=== PATIENT | male | born 1985 | race American Indian/Alaskan Native ===

== ENCOUNTER 2020-02-15 06:38 | Observation (INO) | payer OTHER ==
[2020-02-15 07:39] LABS: Hematocrit TNR % (35.5-45.6); Hemoglobin TNR gm/dl (11.8-15.2); Lymphocytes % (Auto) TNR % (13.4-35.0); Mean Corpuscular HGB Conc TNR % (32-34); Mean Corpuscular Volume TNR fl (84-94); Mean Platelet Volume TNR fl (6-12); Platelet Count TNR K/mm3 (140-440); Red Blood Count TNR M/mm3 (3.65-5.03); Red Cell Distribution Width TNR % (13.2-15.2)
[2020-02-15 07:40] LABS: Basophils # (Auto) TNR K/mm3 (0.0-0.1); Basophils % (Auto) TNR % (0.0-1.8); Eosinophils # (Auto) TNR K/mm3 (0.0-0.4); Eosinophils % (Auto) TNR % (0.0-4.3); Lymphocytes # (Auto) TNR K/mm3 (1.2-5.4); Monocytes # (Auto) TNR K/mm3 (0.0-0.8); Monocytes % (Auto) TNR % (0.0-7.3)
[2020-02-15 07:54] LABS: Albumin 5.8 g/dL (3.9-5); Calcium 11.3 mg/dL (8.4-10.2)
[2020-02-15] MEDS ORDERED: SODIUM CHLORIDE 0.9% 1000 ML 1,000 ML IV ONE ×3 (08:07→10:58)
[2020-02-15] MEDS ORDERED: ONDANSETRON 4 MG/2 ML INJ IV ONE (08:07)
[2020-02-15] MEDS ORDERED: MORPHINE 4 MG/1 ML INJ IV ONE (08:10)
--- NOTE | 2020-02-15 08:10 | Emergency Department Report ---
ED General Adult HPI - General Chief complaint: Nausea/Vomiting/Diarrhea Stated complaint: N/V Time Seen by Provider: 02/15/20 08:01 Source: patient, EMS Mode of arrival: Stretcher Limitations: No Limitations - History of Present Illness Initial comments: Patient presents to the emergency department with a chief complaint of nausea and vomiting that started yesterday. Patient also complains of severe muscle spasm started after the nausea and vomiting. Patient denies any abdominal pain, shortness breath, or chest pain. -: Sudden Severity scale (0 -10): 3 Quality: other (cramping) Consistency: constant Improves with: none Worsens with: none Associated Symptoms: denies other symptoms Treatments Prior to Arrival: none - Related Data Allergies Allergy/AdvReac Type Severity Reaction Status Date / Time No Known Allergies Allergy Verified 02/15/20 06:46 ED Review of Systems ROS: Stated complaint: N/V Other details as noted in HPI Constitutional: denies: chills, fever Eyes: denies: eye pain, eye discharge, vision change ENT: denies: ear pain, throat pain Respiratory: denies: cough, shortness of breath, wheezing Cardiovascular: denies: chest pain, palpitations Endocrine: no symptoms reported Gastrointestinal: nausea, vomiting. denies: abdominal pain, diarrhea Genitourinary: denies: urgency, dysuria Musculoskeletal: denies: back pain, joint swelling, arthralgia Skin: denies: rash, lesions Neurological: denies: headache, weakness, paresthesias Psychiatric: denies: anxiety, depression Hematological/Lymphatic: denies: easy bleeding, easy bruising ED Past Medical Hx - Past Medical History Previous Medical History?: No - Surgical History Past Surgical History?: Yes Additional Surgical History: right hip - Social History Smoking Status: Current Every Day Smoker Substance Use Type: Alcohol ED Physical Exam - General Limitations: No Limitations General appearance: alert, in no apparent distress - Head Head exam: Present: atraumatic, normocephalic - Eye Eye exam: Present: normal appearance, PERRL, EOMI - ENT ENT exam: Present: mucous membranes dry - Neck Neck exam: Present: normal inspection - Respiratory Respiratory exam: Present: normal lung sounds bilaterally. Absent: respiratory distress - Cardiovascular Cardiovascular Exam: Present: regular rate, normal rhythm, tachycardia. Absent: systolic murmur, diastolic murmur, rubs, gallop - GI/Abdominal GI/Abdominal exam: Present: soft, normal bowel sounds. Absent: distended, tenderness - Rectal Rectal exam: Present: deferred - Extremities Exam Extremities exam: Present: normal inspection - Back Exam Back exam: Present: normal inspection - Neurological Exam Neurological exam: Present: alert, oriented X3, CN II-XII intact. Absent: motor sensory deficit - Psychiatric Psychiatric exam: Present: normal affect, normal mood - Skin Skin exam: Present: warm, dry, intact, normal color. Absent: rash ED Course Vital Signs 02/15/20 02/15/20 02/15/20 06:46 06:53 07:00 Temperature 97.7 F Pulse Rate 93 H 95 H 99 H Respiratory 11 L 20 17 Rate Blood Pressure 143/90 Blood Pressure 134/90 [Left] O2 Sat by Pulse 96 97 Oximetry 02/15/20 02/15/20 02/15/20 07:30 08:00 08:30 Temperature Pulse Rate 112 H 95 H 87 Respiratory 16 11 L 11 L Rate Blood Pressure 136/92 138/105 144/97 Blood Pressure [Left] O2 Sat by Pulse 94 97 100 Oximetry 02/15/20 02/15/20 02/15/20 09:00 09:30 10:00 Temperature Pulse Rate 85 88 87 Respiratory 17 18 17 Rate Blood Pressure 130/86 123/86 131/85 Blood Pressure [Left] O2 Sat by Pulse 93 95 Oximetry 02/15/20 02/15/20 02/15/20 10:30 11:00 11:31 Temperature Pulse Rate 83 72 81 Respiratory 12 7 L 10 L Rate Blood Pressure 122/81 127/84 Blood Pressure [Left] O2 Sat by Pulse 96 96 97 Oximetry ED Medical Decision Making - Lab Data Result diagrams: 02/15/20 12:08 02/15/20 12:08 Lab Results 02/15/20 02/15/20 02/15/20 Range/Units 06:54 06:54 06:54 WBC TNR RBC TNR Hgb TNR Hct TNR MCV TNR MCH TNR MCHC TNR RDW TNR Plt Count TNR Lymph % (Auto) TNR Leslie % (Auto) TNR Eos % (Auto) TNR Baso % (Auto) TNR Lymph # (Auto) TNR Leslie # (Auto) TNR Eos # (Auto) TNR Baso # (Auto) TNR Seg Neutrophils % TNR Seg Neutrophils # TNR Sodium 139 (137-145) mmol/L Potassium 3.2 L (3.6-5.0) mmol/L Chloride 90.1 L (98-107) mmol/L Carbon Dioxide 17 L (22-30) mmol/L Anion Gap 35 mmol/L BUN 44 H (9-20) mg/dL Creatinine 5.6 H (0.8-1.3) mg/dL Estimated GFR 12 ml/min BUN/Creatinine Ratio 8 % Glucose 159 H (75-100) mg/dL Calcium 11.3 H (8.4-10.2) mg/dL Total Bilirubin 1.10 (0.1-1.2) mg/dL AST 33 (5-40) units/L ALT 22 (7-56) units/L Alkaline Phosphatase 102 (35-129) units/L Total Protein 10.1 H (6.3-8.2) g/dL Albumin 5.8 H (3.9-5) g/dL Albumin/Globulin Ratio 1.3 % Lipase 40 (13-60) units/L - Medical Decision Making After 4 L of fluid the patient's creatinine decreased from 5.6-3.7 CK is elevated The patient received 3 L of fluid in the ED and 1 L of fluid via EMS After total 4 L of fluid the patient still not able to void Critical Care Time: Yes Critical care time in (mins) excluding proc time.: 35 Critical care attestation.: If time is entered above; I have spent that time in minutes in the direct care of this critically ill patient, excluding procedure time. ED Disposition Clinical Impression: Acute renal injury Disposition: TO HOME OR SELFCARE Is pt being admited?: Yes Does the pt Need Aspirin: No Condition: Fair Referrals: PRIMARY CARE, [Primary Care Provider] - 3-5 Days Time of Disposition: 14:11
[2020-02-15 09:05] LABS: Calcium 11.8 mg/dL (8.4-10.2)
[2020-02-15 09:13] LABS: Hematocrit 61.1 % (35.5-45.6); Hemoglobin 21.6 gm/dl (11.8-15.2); Mean Corpuscular HGB Conc 35 % (32-34); Mean Corpuscular Volume 84 fl (84-94); Platelet Count 293 K/mm3 (140-440); Red Blood Count 7.25 M/mm3 (3.65-5.03); Red Cell Distribution Width 13.8 % (13.2-15.2)
[2020-02-15 10:39] LABS: Basophils % (Manual) 0 % (0.0-1.8); Eosinophils % (Manual) 0 % (0.0-4.3); Large Platelets Few; Platelet Estimate Consistent w Auto; RBC Morphology Normal; Total Cells Counted 100
[2020-02-15 13:31] LABS: Hematocrit 49.1 % (35.5-45.6); Hemoglobin 17.6 gm/dl (11.8-15.2); Mean Corpuscular HGB Conc 36 % (32-34); Mean Corpuscular Volume 84 fl (84-94); Platelet Count 226 K/mm3 (140-440); Red Blood Count 5.83 M/mm3 (3.65-5.03); Red Cell Distribution Width 13.7 % (13.2-15.2)
[2020-02-15] MEDS ORDERED: ACETAMINOPHEN 325 MG TAB PO PRN (14:04)
[2020-02-15] MEDS ORDERED: SODIUM CHLORIDE 0.9% 1000 ML 4,000 ML IV ONE (14:07)
--- NOTE | 2020-02-15 14:08 | History and Physical Report ---
History of Present Illness Chief complaint: I have been feeling well at all History of present illness: 34 YO Male with Nicotine Dependence, ETOH Dependence presents to ED for evaluation. Patient states that he has been "feeling sick" for the past 3 days with worsening symptoms over the same timeframe. Patient acknowledges nausea, and multiple episodes of vomiting over the past 24 hours. EMS was notified and upon arrival the patient was found to be in distress and subsequently transported to [facility] for further care and evaluation of the aforementioned symptoms. Patient seen and evaluated in the emergency department. All lab and imaging studies reviewed. Patient found to have acute kidney injury with acute tubular necrosis, metabolic acidosis, as well as systemic inflammatory response syndrome. Patient placed in observation status and admitted to medical floor due to increased risk of renal decompensation. Patient treated with IV fluid resuscitation therapy with mild improvement in symptoms. Patient denies fever, chills, chest pain, palpitation, productive cough, recent ill contacts, or known exposure COVID-19. No medication listed at time of admission for reconciliation. No prior admission for review. Past History Past Medical History: other (See HPI) Past Surgical History: Other (Hip surgery) Social history: single, smoking, alcohol abuse Family history: hypertension Medications and Allergies Allergies Allergy/AdvReac Type Severity Reaction Status Date / Time No Known Allergies Allergy Verified 02/15/20 06:46 Active Meds: Active Medications Acetaminophen (Tylenol) 650 mg PO Q4H PRN PRN Reason: Pain MILD(1-3)/Fever >100.5/[place] Ondansetron HCl (Zofran) 4 mg IV Q8H PRN PRN Reason: Nausea And Vomiting Sodium Chloride (Sodium Chloride Flush Syringe 10 Ml) 10 ml IV BID ROSE Sodium Chloride (Sodium Chloride Flush Syringe 10 Ml) 10 ml IV PRN PRN PRN Reason: LINE FLUSH Review of Systems Constitutional: fatigue, weakness, no weight loss, no weight gain, no fever, no chills Ears, nose, mouth and throat: no ear pain, no ear discharge, no tinnitis, no nose pain, no nasal congestion, no nasal discharge Cardiovascular: no chest pain, no orthopnea, no rapid/irregular heart beat, no edema, no syncope Respiratory: no cough, no cough with sputum, no hemoptysis, no dyspnea on exertion Gastrointestinal: nausea, vomiting, no diarrhea, no constipation, no BRBPR, no hematochezia Genitourinary Male: no hematuria, no flank pain, no discharge, no urinary frequency Rectal: no pain, no incontinence, no bleeding Musculoskeletal: no neck stiffness, no neck pain, no shooting arm pain, no arm numbness/tingling, no low back pain, no shooting leg pain, no leg numbness/tingling Integumentary: no rash, no pruritis, no wounds, no boils, no blisters Neurological: no head injury, no transient paralysis, no paralysis, no parathesias, no seizures, no syncope, no ataxia Psychiatric: no memory loss, no change in sleep habits, no insomnia, no change in libido, no suicidal ideation, no disorientation Endocrine: no cold intolerance, no heat intolerance, no polyphagia, no polyuria, no nocturia, no excessive sweating, no flushing Hematologic/Lymphatic: no easy bruising, no easy bleeding, no lymphedema Allergic/Immunologic: no allergic rhinitis, no wheezing, no persistent infections, no anaphylaxis Exam - Constitutional Vitals: Temp Pulse Resp BP Pulse Ox 97.7 F 81 10 L 127/84 97 02/15/20 06:53 02/15/20 11:31 02/15/20 11:31 02/15/20 11:00 02/15/20 11:31 General appearance: Present: mild distress - EENT Eyes: Present: PERRL ENT: hearing intact, clear oral mucosa - Neck Neck: Present: supple, normal ROM - Respiratory Respiratory effort: normal Respiratory: bilateral: CTA - Cardiovascular Heart Sounds: Present: S1 & S2. Absent: rub, click - Extremities Extremities: pulses symmetrical, No edema Peripheral Pulses: within normal limits - Abdominal General gastrointestinal: Present: soft, non-tender, non-distended, normal bowel sounds Male genitourinary: Present: normal - Integumentary Integumentary: Present: clear, warm, dry - Musculoskeletal Musculoskeletal: gait normal, strength equal bilaterally - Psychiatric Psychiatric: appropriate mood/affect, intact judgment & insight - Neurologic Neurologic: CNII-XII intact, moves all extremities Results - Labs CBC & Chem 7: 02/15/20 12:08 02/15/20 12:08 Labs: Abnormal lab results 02/15/20 02/15/20 02/15/20 Range/Units 06:54 08:15 08:45 WBC 26.3 H (4.5-11.0) K/mm3 RBC 7.25 H (3.65-5.03) M/mm3 Hgb 21.6 H* (11.8-15.2) gm/dl Hct 61.1 H* (35.5-45.6) % MCHC 35 H (32-34) % Seg Neuts % (Manual) 85.0 H (40.0-70.0) % Lymphocytes % (Manual) 7.0 L (13.4-35.0) % Monocytes % (Manual) 8.0 H (0.0-7.3) % Seg Neutrophils # Man 22.4 H (1.8-7.7) K/mm3 Monocytes # (Manual) 2.1 H (0.0-0.8) K/mm3 Sodium (137-145) mmol/L Potassium 3.2 L (3.6-5.0) mmol/L Chloride 90.1 L 87.3 L (98-107) mmol/L Carbon Dioxide 17 L 16 L (22-30) mmol/L BUN 44 H 45 H (9-20) mg/dL Creatinine 5.6 H 5.7 H (0.8-1.3) mg/dL Glucose 159 H 146 H (75-100) mg/dL Calcium 11.3 H 11.8 H (8.4-10.2) mg/dL Total Creatine Kinase (55-170) units/L Total Protein 10.1 H (6.3-8.2) g/dL Albumin 5.8 H (3.9-5) g/dL 02/15/20 02/15/20 02/15/20 Range/Units 09:52 12:08 12:08 WBC 20.6 H (4.5-11.0) K/mm3 RBC 5.83 H (3.65-5.03) M/mm3 Hgb 17.6 H D (11.8-15.2) gm/dl Hct 49.1 H D (35.5-45.6) % MCHC 36 H (32-34) % Seg Neuts % (Manual) (40.0-70.0) % Lymphocytes % (Manual) (13.4-35.0) % Monocytes % (Manual) (0.0-7.3) % Seg Neutrophils # Man (1.8-7.7) K/mm3 Monocytes # (Manual) (0.0-0.8) K/mm3 Sodium 136 L (137-145) mmol/L Potassium 3.3 L (3.6-5.0) mmol/L Chloride (98-107) mmol/L Carbon Dioxide 19 L (22-30) mmol/L BUN 44 H (9-20) mg/dL Creatinine 3.7 H (0.8-1.3) mg/dL Glucose 102 H (75-100) mg/dL Calcium (8.4-10.2) mg/dL Total Creatine Kinase 1553 H 1589 H (55-170) units/L Total Protein (6.3-8.2) g/dL Albumin (3.9-5) g/dL Assessment and Plan - Patient Problems (1) Acute kidney injury (YELITZA) with acute tubular necrosis (ATN) Current Visit: Yes Status: Acute Plan to address problem: IV fluid resuscitation therapy, monitor urine output every shift, rapid HIV, hepatitis panel, avoid nephrotoxic agents, repeat BMP in a.m. to monitor serum creatinine. Urine sodium, urine creatinine. (2) Metabolic acidosis Current Visit: Yes Status: Acute Plan to address problem: IV fluid resuscitation therapy, BMP, repeat BMP in a.m. (3) Systemic inflammatory response syndrome Current Visit: Yes Status: Acute Plan to address problem: CBC, CMP, chest x-ray, urinalysis. No source of infection identified. Continue supportive care. Suspect hemoconcentration. (4) Nicotine dependence Current Visit: Yes Status: Acute Qualifiers: Nicotine product type: cigarettes Substance use status: in withdrawal Qualified Code(s): F17.213 - Nicotine dependence, cigarettes, with withdrawal Plan to address problem: Smoking cessation counseling, supportive care, behavior change counseling, +15 minutes. (5) Alcohol dependence Current Visit: Yes Status: Acute Qualifiers: Complication of substance-induced condition: uncomplicated Plan to address problem: Thiamine, folic acid, multivitamin, CIWA protocol. (6) DVT prophylaxis Current Visit: Yes Status: Acute Plan to address problem: SCD to bilateral lower extremities while in bed, patient is ambulatory.
[2020-02-15] MEDS ORDERED: SODIUM BICARB 8.4% 50 MEQ/50 ML SYRINGE IV ONE ×2 (14:09→18:00)
[2020-02-15 14:48] LABS: Anisocytosis 1+; Basophils % (Manual) 0 % (0.0-1.8); Eosinophils % (Manual) 0 % (0.0-4.3); Total Cells Counted 100
[2020-02-15 14:49] LABS: Platelet Estimate Consistent w Auto
[2020-02-15] MEDS ORDERED: LORazepam 2 MG/ML VIAL IV PRN (15:10)
[2020-02-15 15:14] LABS: Calcium 8.3 mg/dL (8.4-10.2)
[2020-02-15 15:31] LABS: Hepatitis B Surface Antigen Non-Reactive (Negative); Hepatitis C Virus Antibody Non-Reactive (NonReactive)
[2020-02-15 16:14] LABS: Bilirubin,Urine NEG (Negative); Blood,Urine MOD (Negative); Color,Urine Yellow (Yellow); Hyaline Casts,Urine 4 /LPF; Mucus,Urine FEW /HPF; Urobilinogen,Urine < 2.0 mg/dL (<2.0)
[2020-02-15 16:21] LABS: Creatinine,Urine 387.5 mg/dL (0.1-20.0)
[2020-02-15] MEDS: FOLIC ACID 1 MG TAB PO SCH (17:49)
[2020-02-15] MEDS: MULTIVITAMINS ,THERAPEUTIC TAB PO SCH (17:49)
[2020-02-15] MEDS: THIAMINE 100 MG TAB PO SCH (17:51)
--- NOTE | 2020-02-15 18:07 | Ultrasound Report ---
ULTRASOUND RENAL INDICATION: YELITZA. COMPARISON: No relevant prior imaging study available. FINDINGS: RIGHT KIDNEY: Size: 13.3 cm. Echogenicity: Echogenic. Cortical thickness: 1.3 cm. Hydronephrosis: None. Cyst or mass: None. Stones: None. LEFT KIDNEY: Size: 13.4 cm. Echogenicity: Echogenic. Cortical thickness: 1.2 cm. Hydronephrosis: None. Cyst or mass: None. Stones: None. Urinary Bladder: No significant abnormality. Free Fluid: None. Additional Findings: None. IMPRESSION 1. Echogenic kidneys characteristic for medical renal disease. No hydronephrosis. Signer Name: James Jane MD Signed: 02/15/2020 6:02 PM Workstation Name: [id number]
[2020-02-15] MEDS: SODIUM CHLORIDE 0.9% 1000 ML 1,000 ML IV SCH (18:15)
[2020-02-16] MEDS: SODIUM CHLORIDE 0.9% 1000 ML 1,000 ML IV SCH ×2 (03:56→21:54)
[2020-02-16] MEDS: ONDANSETRON 4 MG/2 ML INJ IV PRN (08:11)
[2020-02-16 08:31] LABS: BUN/Creatinine Ratio 18; Blood Urea Nitrogen 23 mg/dL (9-20); Calcium 8.5 mg/dL (8.4-10.2); Hemolysis Index 11
--- NOTE | 2020-02-16 09:29 | Progress Note ---
Assessment and Plan (1) Acute kidney injury (YELITZA) with acute tubular necrosis (ATN) Current Visit: Yes Status: Acute Plan to address problem: IV fluid resuscitation therapy, monitor urine output every shift, rapid HIV, hepatitis panel, avoid nephrotoxic agents, repeat BMP in a.m. to monitor serum creatinine. Urine sodium, urine creatinine. (2) Metabolic acidosis Current Visit: Yes Status: Acute Plan to address problem: IV fluid resuscitation therapy, BMP, repeat BMP in a.m. (3) Systemic inflammatory response syndrome Current Visit: Yes Status: Acute Plan to address problem: CBC, CMP, chest x-ray, urinalysis. No source of infection identified. Continue supportive care. Suspect hemoconcentration. (4) Nicotine dependence Current Visit: Yes Status: Acute Qualifiers: Nicotine product type: cigarettes Substance use status: in withdrawal Qualified Code(s): F17.213 - Nicotine dependence, cigarettes, with withdrawal Plan to address problem: Smoking cessation counseling, supportive care, behavior change counseling, +15 minutes. (5) Alcohol dependence Current Visit: Yes Status: Acute Qualifiers: Complication of substance-induced condition: uncomplicated Plan to address problem: Thiamine, folic acid, multivitamin, CIWA protocol. (6) DVT prophylaxis Current Visit: Yes Status: Acute Plan to address problem: SCD to bilateral lower extremities while in bed, patient is ambulatory. Brief History: 34 YO Male with Nicotine Dependence, ETOH Dependence presents to ED for evaluation. Patient states that he has been "feeling sick" for the past 3 days with worsening symptoms over the same timeframe. Patient acknowledges nausea, and multiple episodes of vomiting over the past 24 hours. EMS was notified and upon arrival the patient was found to be in distress and subsequently transported to [facility] for further care and evaluation of the aforementioned symptoms. Patient seen and evaluated in the emergency department. All lab and imaging studies reviewed. Patient found to have acute kidney injury with acute tubular necrosis, metabolic acidosis, as well as systemic inflammatory response syndrome. Patient placed in observation status and admitted to medical floor due to increased risk of renal decompensation. Patient treated with IV fluid resuscitation therapy with mild improvement in symptoms. Patient denies fever, chills, chest pain, palpitation, productive cough, recent ill contacts, or known exposure COVID-19. No medication listed at time of admission for reconciliation. No prior admission for review. Subjective Date of service: 02/23/20 Objective - Constitutional Vitals: Vital Signs - 12hr 02/15/20 02/16/20 21:51 04:13 Temperature 97.8 F Pulse Rate 83 Respiratory 18 Rate Respiratory 18 Rate [ Generalized] Blood Pressure 123/71 O2 Sat by Pulse 97 Oximetry - Labs CBC & Chem 7: 02/16/20 09:35 02/16/20 07:12 Labs: Abnormal lab results 02/15/20 02/15/20 02/15/20 Range/Units 08:45 09:52 12:08 WBC 20.6 H (4.5-11.0) K/mm3 RBC 5.83 H (3.65-5.03) M/mm3 Hgb 17.6 H D (11.8-15.2) gm/dl Hct 49.1 H D (35.5-45.6) % MCHC 36 H (32-34) % Seg Neuts % (Manual) 85.0 H 80.0 H (40.0-70.0) % Lymphocytes % (Manual) 7.0 L 5.0 L (13.4-35.0) % Monocytes % (Manual) 8.0 H 15.0 H (0.0-7.3) % Seg Neutrophils # Man 22.4 H 16.5 H (1.8-7.7) K/mm3 Lymphocytes # (Manual) 1.0 L (1.2-5.4) K/mm3 Monocytes # (Manual) 2.1 H 3.1 H (0.0-0.8) K/mm3 Sodium (137-145) mmol/L Potassium (3.6-5.0) mmol/L Carbon Dioxide (22-30) mmol/L BUN (9-20) mg/dL Creatinine (0.8-1.3) mg/dL Glucose (75-100) mg/dL Calcium (8.4-10.2) mg/dL Total Creatine Kinase 1553 H (55-170) units/L Urine Creatinine (0.1-20.0) mg/dL 02/15/20 02/15/20 02/16/20 Range/Units 12:08 Unknown 07:12 WBC (4.5-11.0) K/mm3 RBC (3.65-5.03) M/mm3 Hgb (11.8-15.2) gm/dl Hct (35.5-45.6) % MCHC (32-34) % Seg Neuts % (Manual) (40.0-70.0) % Lymphocytes % (Manual) (13.4-35.0) % Monocytes % (Manual) (0.0-7.3) % Seg Neutrophils # Man (1.8-7.7) K/mm3 Lymphocytes # (Manual) (1.2-5.4) K/mm3 Monocytes # (Manual) (0.0-0.8) K/mm3 Sodium 136 L (137-145) mmol/L Potassium 3.3 L 2.9 L* (3.6-5.0) mmol/L Carbon Dioxide 19 L (22-30) mmol/L BUN 44 H 23 H (9-20) mg/dL Creatinine 3.7 H (0.8-1.3) mg/dL Glucose 102 H 105 H (75-100) mg/dL Calcium 8.3 L D (8.4-10.2) mg/dL Total Creatine Kinase 1589 H (55-170) units/L Urine Creatinine 387.5 H (0.1-20.0) mg/dL
[2020-02-16 09:54] LABS: Hematocrit 46.4 % (35.5-45.6); Hemoglobin 16.1 gm/dl (11.8-15.2); Mean Corpuscular HGB Conc 35 % (32-34); Mean Corpuscular Volume 83 fl (84-94); Platelet Count 205 K/mm3 (140-440); Red Blood Count 5.57 M/mm3 (3.65-5.03); Red Cell Distribution Width 13.4 % (13.2-15.2)
[2020-02-16] MEDS ORDERED: POTASSIUM CHLORIDE ER 20 MEQ TAB PO NR (10:00)
[2020-02-16] MEDS: MULTIVITAMINS ,THERAPEUTIC TAB PO SCH (10:36)
[2020-02-16] MEDS: FOLIC ACID 1 MG TAB PO SCH (10:36)
[2020-02-16] MEDS: THIAMINE 100 MG TAB PO SCH (10:36)
[2020-02-16] MEDS: POTASSIUM CHLORIDE 10 MEQ 10 MEQ/100 ML BAG IV SCH ×2 (10:37→10:38)
[2020-02-17] MEDS: SODIUM CHLORIDE 0.9% 1000 ML 1,000 ML IV SCH (05:15)
[2020-02-17] MEDS: ONDANSETRON 4 MG/2 ML INJ IV PRN (05:15)
[2020-02-17 09:51] LABS: Basophils # (Auto) 0.1 K/mm3 (0.0-0.1); Basophils % (Auto) 0.5 % (0.0-1.8); Eosinophils % (Auto) 0.1 % (0.0-4.3); Hematocrit 42.5 % (35.5-45.6); Hemoglobin 15.1 gm/dl (11.8-15.2); Lymphocytes # (Auto) 1.9 K/mm3 (1.2-5.4); Lymphocytes % (Auto) 17.2 % (13.4-35.0); Mean Corpuscular HGB Conc 36 % (32-34); Mean Corpuscular Volume 84 fl (84-94); Monocytes % (Auto) 9.5 % (0.0-7.3); Platelet Count 186 K/mm3 (140-440); Red Blood Count 5.06 M/mm3 (3.65-5.03); Red Cell Distribution Width 13.5 % (13.2-15.2)
[2020-02-17] MEDS ORDERED: POTASSIUM CHLORIDE ER 20 MEQ TAB PO SCH (10:00)
[2020-02-17 10:03] LABS: BUN/Creatinine Ratio 15; Blood Urea Nitrogen 12 mg/dL (9-20); Calcium 8.7 mg/dL (8.4-10.2); Hemolysis Index 11
[2020-02-17] MEDS: THIAMINE 100 MG TAB PO SCH (10:05)
[2020-02-17] MEDS: FOLIC ACID 1 MG TAB PO SCH (10:05)
[2020-02-17] MEDS: MULTIVITAMINS ,THERAPEUTIC TAB PO SCH (10:05)
--- NOTE | 2020-02-17 10:09 | Discharge Summary ---
Providers - Providers Date of Admission: 02/15/20 14:04 Date of discharge: 02/17/20 Attending physician: KUSH MONTANA Primary care physician: INSTANTIZER OPERATOR Hospitalization Condition: Fair Disposition: DC-01 TO HOME OR SELFCARE Time spent for discharge: 34 minutes Exam - Constitutional Vitals: Temp Pulse Resp BP Pulse Ox 98.4 F 80 16 128/85 95 02/17/20 04:17 02/17/20 04:17 02/17/20 04:17 02/17/20 04:17 02/17/20 04:17 Plan Activity: advance as tolerated Weight Bearing Status: Weight Bear as Tolerated Diet: advance as tolerated Special Instructions: other (Abstinence from drinking alcohol) Follow up with: PRIMARY MD ZAYNAB [Primary Care Provider] - 3-5 Days JOHN SHOEMAKER MD [Staff Physician] - 7 Days
[2020-02-17 12:02] VITALS: BP 128/75
== END 2020-02-17 14:15 | disposition home or self-care (01) ==
LOC: ED 06:38 → 3A 14:04
PROVIDERS: ADMIT Internal Medicine; ATTEND Internal Medicine
DX: N17.9 Acute kidney failure, unspecified (principal); E87.2 Acidosis; R65.10 Systemic inflammatory response syndrome (SIRS) of non-infectious origin without acute organ dysfunction; F17.213 Nicotine dependence, cigarettes, with withdrawal; F10.20 Alcohol dependence, uncomplicated; Z98.890 Other specified postprocedural states
CPT/HCPCS: 36415; 76770; 80048; 80053; 80074; 81001; 82550; 82570; 83690; 83735; 84300; 85007; 85025; 85027; 86689; 96361; 96374; 96375; 96376; 99291; G0378; J2270; J2405; J3480; J7030